=== PATIENT | female | born 1960 | race Caucasian/White ===

== ENCOUNTER 2016-09-17 05:33 | Inpatient (IN) | payer OTHER ==
[2016-09-04 08:35] LABS: HEMATOCRIT 42.8 % (37.0-47.0); HEMOGLOBIN 14.4 gm/dL (12.0-15.0); MCH 29.4 pg (26.0-34.0); MCHC 33.6 g/dL (28.0-37.0); MCV 87.5 fL (80.0-100.0); RBC 4.89 mil/uL (4.20-5.00); RDW 14.1 % (10.5-14.5); WBC 8.8 thou/uL (4.0-11.0)
[2016-09-04 08:37] LABS: URINE BILIRUBIN NEGATIVE (Negative); URINE BLOOD 1+ (Negative); URINE COLOR YELLOW; URINE GLUCOSE-RANDOM* NEGATIVE (Negative); URINE KETONES NEGATIVE (Negative); URINE LEUKOCYTES-REFLEX NEGATIVE (Negative); URINE PROTEIN (DIPSTICK) NEGATIVE (Negative); URINE UROBILINOGEN 0.2 E.U./dl (0.2-1.0)
[2016-09-04 08:42] LABS: ALBUMIN 3.8 g/dL (3.4-5.0); CALCIUM 8.8 mg/dL (8.5-10.1); CREATININE 0.7 mg/dL (0.6-1.0); POTASSIUM 4.1 mmol/L (3.5-5.1)
[2016-09-04 08:47] LABS: PROTIME 10.1 Seconds (9.3-11.4)
[2016-09-04 08:58] LABS: CASTS None Seen /LPF (None Seen); CRYSTALS None Seen /LPF (None Seen); SQUAMOUS 0-3 Few /LPF (0-3); URINE RBC 0-2 Rare /HPF (0-2); URINE WBC-REFLEX None Seen /HPF (0-5)
[2016-09-17] VITALS (9 sets, daily range): BP systolic 115–151; BP diastolic 70–81
[~2016-09-17] VITALS: Ht 154.9 cm; Wt 88.0 kg
--- NOTE | ~2016-09-17 | EKG ---
[address] [address] ELECTROCARDIOGRAM REPORT Name: MAHOGANY PECK Room #: [facility] IN [facility]#: [id number] Admission: Attend Phys: Kain Wakefield MD Discharge: Date of : 62 Report #: [id number] THIS REPORT FOR: //name// [facility] Test Date: 2016-09-04 Test Time: 08:28:41 Pat Name: MAHOGANY PECK Department: Room: Gender: F Machine Heel Seat Fitter: ayanna : 1960 Requested By: Kain Wakefield Order Number: [id number] MD: Gomez Buck Measurements Intervals [place] Rate: 74 P: 60 OR: 171 QRS: 27 QRSD: 118 T: 28 QT: 405 QTc: 450 Interpretive Statements Sinus rhythm No significant abnormality No previous ECG available for comparison Electronically Signed On 09-04-2016 9:03:41 CDT by Gomez Buck [email or web address] <ELECTRONICALLY SIGNED> By: Gomez Buck MD, [facility] 09/04/16 0903 0828 0828 Gomez Buck MD, FACC /EPI
--- NOTE | ~2016-09-17 | O ---
[facility] [place] [address] OPERATIVE REPORT Name: MAHOGANY PECK Room #: 540-P [facility] IN M.R.#: [id number] Admission: 09/17/16 Attend Phys: Kain Wakefield MD Discharge: Date of : 62 Report #: [id number] THIS REPORT FOR: //name// CC: Kain Barba DATE OF SERVICE: 09/17/2016 PREOPERATIVE DIAGNOSIS: Right knee valgus osteoarthritis. POSTOPERATIVE DIAGNOSIS: Right knee valgus osteoarthritis. PROCEDURE: Right total knee arthroplasty. SURGEON: Kain Wakefield MD. COSTING ANALYST: Emily Stanley PA-C. ANESTHESIA: LMA with an adductor canal block. IMPLANTS: Cantu and Nephew size 7 Legion posterior stabilized Oxinium femur, size 5 tibia, size 11 polyethylene, and size 35 patella. TOURNIQUET TIME: 80 minutes. ESTIMATED BLOOD LOSS: 50 mL. COMPLICATIONS: None. SPECIMENS: None. CONDITION UPON LEAVING THE OPERATING ROOM: Stable. INDICATIONS FOR PROCEDURE: This patient is a 55-year-old female with severe right knee valgus osteoarthritis. She had failed conservative treatment for this, and after discussion with her, she elected for right total knee arthroplasty. DESCRIPTION OF PROCEDURE: Risks, benefits, alternatives, and complications were discussed in detail with the patient including but not limited to risk of anesthesia, risk of damage to nerves, arteries, blood vessels, risk for infection, bleeding, risk for continued knee pain, and need for reoperation. An informed consent was obtained from the patient. The right knee was appropriately marked in the preoperative holding area. IV Ancef was given for preoperative antibiotics. An adductor canal block was placed by anesthesia. She was brought to the operating room and placed in the supine position on the [address] [address] OPERATIVE REPORT Name: MAHOGANY PECK Room #: 540-P [facility] IN ..#: [id number] Admission: 09/17/16 Attend Phys: Kain Wakefield MD Discharge: Date of : 62 Report #: [id number] operating room table. LMA anesthesia was induced without complication. Tourniquet was placed on the right thigh. Right lower extremity was prepped and draped in the normal sterile fashion. Timeout was performed, properly identifying the patient and procedure, as well as the instrumentation and implants. All in the operating room were in agreement. Right lower extremity was exsanguinated. Tourniquet was inflated. Tourniquet time was 80 minutes. Standard midline approach to the knee was made with #10 blade through the skin. Dissection was taken down sharply to the fascia, and deep flaps were developed medially and laterally. Fresh #10 blade was used to make a medial parapatellar arthrotomy, and the knee was inspected. There was extensive osteoarthritic change, primarily of the lateral compartment. Anterior horns of the meniscus were removed sharply. Deep retractors were placed. Patella was everted, and the knee was flexed. ACL and PCL were removed sharply. Drill was used to gain access to the canal of the femur, and the distal femoral cutting block was pinned in place. Distal femoral cut was made. There was minimal lateral femoral condylar resection with the initial cut, given her valgus arthritic knee. The femur was sized, found to be of size 7. The size 7 four-in-one cutting block was placed. The anterior, posterior, and chamfer cuts were made. After this, the knee was hyperflexed, and the tibial resection was placed off the medial plateau, as this was the least affected side. The remainder of the meniscus was removed with Bovie cautery. Flexion and extension gaps were checked and found to be tight in extension both medially and laterally. A 2 mm of additional distal femur were taken and chamfer cuts were redone. Flexion and extension gaps were then checked, and again it was still tight laterally, and so a limited lateral release was performed, using a pie-crusting technique, which balanced the knee well. After this, tibia was sized, found to be of size 5. Size 5 tibial trial was placed, size 7 femoral trial was placed, and the box cut was made. The post was placed and a size 11 polyethylene was placed. Knee was taken through range of motion, found to be stable, found to have good balance medially and laterally. A 9 mm was taken off the posterior surface of the patella and a size 35 patellar button trial was placed. Knee was taken through range of motion, found to be stable, found to have slight lateral tracking, and this will be evaluated after letting the tourniquet down and final implants were in place. After this, trial components were removed and bony ends were thoroughly irrigated with normal saline. A final size 5 tibia, size 7 Legion Oxinium posterior stabilized femur and a size 35 patella were cemented in place using standard cementation techniques. After the cement cured, the tourniquet was deflated and hemostasis was obtained with Bovie cautery. The patellar tracking was checked again. After a final size #11 polyethylene was placed and found to have slight lateral tracking in patella. The patella has very limited lateral release. This was performed with Bovie cautery, which adjusted the patellar tracking well. The knee was thoroughly irrigated with normal saline. Periarticular injection consisting of morphine, ropivacaine, epinephrine, and Toradol was placed around the knee joint. Fascia was closed with 0 Vicryl. Skin was closed with 2-0 Vicryl, 3-0 Monocryl, Dermabond, and an Aquacel [facility] [address] [place] [address] OPERATIVE REPORT Name: MAHOGANY PECK Room #: 540-P [facility] IN M.R.#: [id number] Admission: 09/17/16 Attend Phys: Kain Wakefield MD Discharge: Date of : 62 Report #: [id number] dressing was applied. The patient tolerated this procedure well and went to the recovery room under the care of anesthesia postoperatively. <ELECTRONICALLY SIGNED> By: Kain Wakefield MD 09/18/16 0731 1503 1735 Kain Wakefield MD /nt
[~2016-09-17 05:33] MED LIST: CARDIZEM CD120 MG PO; FLEXERIL PO; FLONASE 0.05%50 MCG NASAL; IBUPROFEN 200200 M1 PO; MULTIVITAMINS1 EAC7 PO; NICORETTE2 MG BC; NORCO 5-325 TA1 EACH PO; VERAPAMIL E.R240 M1 PO; VERAPAMIL HCL360 MG PO; VITAMIN D35000 UNIT PO
[2016-09-18 04:18] VITALS: BP 132/64
[2016-09-18 04:44] LABS: HEMATOCRIT 37.5 % (37.0-47.0); HEMOGLOBIN 12.4 gm/dL (12.0-15.0); MCH 28.9 pg (26.0-34.0); MCHC 33.2 g/dL (28.0-37.0); MCV 87.2 fL (80.0-100.0); RBC 4.3 mil/uL (4.20-5.00); RDW 14.1 % (10.5-14.5)
[2016-09-18 07:30] VITALS: BP 107/62
[2016-09-18] MEDS ORDERED: MS CONTIN15 MG PO (09:36)
[2016-09-18] MEDS ORDERED: CVS BUFFERED A325 MG PO (09:36)
[2016-09-18] MEDS ORDERED: PERCOCET PO (09:37)
[2016-09-18 11:13] VITALS: BP 107/62
== END 2016-09-18 11:53 | disposition home or self-care (01) | DRG 470 ==
LOC: 5S 05:33 → TBA 05:33 → 5S 07:41
PROVIDERS: Orthopaedic Surgery
PROC: 0SRC0J9 Replacement of Right Knee Joint with Synthetic Substitute, Cemented, Open Approach (ICD-10-PCS; principal; 2016-09-17)
DX: M17.11 Unilateral primary osteoarthritis, right knee (principal); M21.061 Valgus deformity, not elsewhere classified, right knee; I10 Essential (primary) hypertension; G43.909 Migraine, unspecified, not intractable, without status migrainosus; Z90.49 Acquired absence of other specified parts of digestive tract; Z87.891 Personal history of nicotine dependence; Z88.2 Allergy status to sulfonamides; Z88.6 Allergy status to analgesic agent
CPT/HCPCS: 10785; 50010; 50101; 50415; 50612; 50954; 51130; 51225; 51771; 52256; 53000; 53078; 53365; 54118; 56527; 56528; 57095; 62110; 62900; 70005

== ENCOUNTER 2016-10-29 17:00 | Emergency (ER) | payer OTHER ==
[~2016-10-29] VITALS: Ht 172.7 cm; Wt 79.4 kg
[~2016-10-29 17:00] MED LIST changes: +CVS BUFFERED A325 MG PO; +MS CONTIN15 MG PO; +PERCOCET PO
[2016-10-29 17:47] LABS: URINE BLOOD 1+ (Negative); URINE COLOR YELLOW; URINE GLUCOSE-RANDOM* NEGATIVE (Negative); URINE KETONES NEGATIVE (Negative); URINE LEUKOCYTES-REFLEX NEGATIVE (Negative); URINE PROTEIN (DIPSTICK) TRACE (Negative); URINE SPECIFIC GRAVITY >= 1.030 (1.003-1.035); URINE UROBILINOGEN 0.2 E.U./dl (0.2-1.0)
[2016-10-29 17:52] LABS: ABSOLUTE NEUTROPHILS 5.1 thou/uL (1.4-8.2); BASOPHILS 0.7 % (0.0-2.0); EOSINOPHILS 1.2 % (0.0-3.0); HEMATOCRIT 41.9 % (37.0-47.0); LYMPHOCYTES 30.4 % (24.0-44.0); MCH 28.9 pg (26.0-34.0); MCHC 33.5 g/dL (28.0-37.0); MCV 86.4 fL (80.0-100.0); MONOCYTES 7.1 % (1.0-8.0); PLATELET COUNT 294 thou/uL (150-400); POLYS 60.6 % (36.0-66.0); RBC 4.85 mil/uL (4.20-5.00); WBC 8.4 thou/uL (4.0-11.0)
[2016-10-29 17:52] LABS: URINE BILIRUBIN NEGATIVE (Negative)
[2016-10-29 17:53] LABS: MANUAL DIFF NO
[2016-10-29 17:54] LABS: CALCIUM 9.5 mg/dL (8.5-10.1); CREATININE 0.9 mg/dL (0.6-1.0); POTASSIUM 3.4 mmol/L (3.5-5.1)
[2016-10-29 17:59] LABS: CASTS None Seen /LPF (None Seen); CRYSTALS None Seen /LPF (None Seen); SQUAMOUS >10 Many /LPF (0-3); URINE WBC-REFLEX 0-5 Rare /HPF (0-5)
[2016-10-29 18:00] LABS: ALBUMIN 4.3 g/dL (3.4-5.0); TOTAL BILIRUBIN 0.3 mg/dL (<0.1-1.0)
[2016-10-29 18:48] LABS: URINE BILIRUBIN NEGATIVE (Negative); URINE BLOOD 2+ (Negative); URINE COLOR YELLOW; URINE GLUCOSE-RANDOM* NEGATIVE (Negative); URINE KETONES NEGATIVE (Negative); URINE LEUKOCYTES-REFLEX TRACE (Negative); URINE PROTEIN (DIPSTICK) NEGATIVE (Negative); URINE UROBILINOGEN 0.2 E.U./dl (0.2-1.0)
[2016-10-29 18:56] LABS: CASTS None Seen /LPF (None Seen); CRYSTALS None Seen /LPF (None Seen); SQUAMOUS 0-3 Few /LPF (0-3); URINE RBC 3-10 Few /HPF (0-2); URINE WBC-REFLEX 0-5 Rare /HPF (0-5)
== END 2016-10-29 20:16 | disposition home or self-care (01) ==
LOC: ER 17:00
PROVIDERS: Emergency Medicine
DX: R10.30 Lower abdominal pain, unspecified (principal); G43.909 Migraine, unspecified, not intractable, without status migrainosus; I10 Essential (primary) hypertension; Z90.49 Acquired absence of other specified parts of digestive tract; Z98.890 Other specified postprocedural states; Z88.5 Allergy status to narcotic agent; Z88.2 Allergy status to sulfonamides; Z88.6 Allergy status to analgesic agent; Z87.891 Personal history of nicotine dependence

== ENCOUNTER 2016-12-28 22:00 | Inpatient (IN) | payer OTHER ==
[~2016-12-28] VITALS: Ht 172.7 cm; Wt 78.6 kg
--- NOTE | ~2016-12-28 | HC ---
[facility] [place] [address] CONSULTATION Name: MAHOGANY PECK Room #: 422-P [facility] IN ..#: [id number] Admission: 12/29/16 Attend Phys: Edwin Fonseca DO Discharge: Date of : 62 Report #: [id number] THIS REPORT FOR: //name// CC: Edwin Barba DATE OF SERVICE: 12/29/2016 HISTORY OF PRESENT ILLNESS: The patient is a 56-year-old female with increasing low abdominal pain. She states it started approximately 2 weeks ago, but became progressively worse. The patient had knee surgery in August and was taking pain medication, became constipated. She denies any blood in her stools. She denies any fevers or chills. She does report nausea. She was seen by her primary care physician yesterday and reportedly had an elevated white count and was sent to the emergency room. A CT scan of the abdomen and pelvis was performed, which showed moderate severity in the mid sigmoid colon diverticulitis contained perforation of the sigmoid colon with a 2 cm extraluminal fluid and gas collection adjacent to the colonic wall, no intraperitoneal free air, no drainable abscess. The patient has had one previous episode of diverticulitis in the past and was treated with oral antibiotics and resolved. She has never had a colonoscopy. Her weight has been stable. She is now on IV Zosyn and Metronidazole. She is afebrile at this time. She denies any emesis. She denies any chest pain or shortness of breath. No rashes. She does complain of a headache. The patient also had recent urinary tract infection that was treated on the CT scan on admission. There is prominent circumferential bladder wall thickening, which was present previously and may represent underlying chronic cystitis. Small fat continuing left inguinal hernia was also noted. ALLERGIES: SULFA, CODEINE, MORPHINE AND PERCOCET. REVIEW OF SYSTEMS: As per HPI. FAMILY HISTORY: Negative for colon cancer or inflammatory bowel disease. SOCIAL HISTORY: She does smoke. She reports rare alcohol use. PHYSICAL EXAMINATION: VITAL SIGNS: Temperature is 97.5, pulse 70, blood pressure 134/78, and respiratory rate is 20. GENERAL: She is alert and oriented x 3, in no acute distress. HEENT: Sclerae nonicteric. Oropharynx clear. NECK: Supple, without lymphadenopathy. HEART: Regular rate and rhythm. CHEST: Clear to auscultation bilaterally. [facility] [address] [place] [address] CONSULTATION Name: MAHOGANY PECK Room #: 422-P [facility] IN [facility].#: [id number] Admission: 12/29/16 Attend Phys: Edwin Fonseca DO Discharge: Date of : 62 Report #: [id number] ABDOMEN: Soft. She is tender to palpation in the midline and left lower quadrant primarily, nondistended, positive bowel sounds. EXTREMITIES: No cyanosis or clubbing. Her right knee, total knee incision site is clean, dry, intact and well healed. Mild edema, but no redness. LABORATORY DATA: Sodium 141, potassium 3.4, chloride 103, bicarbonate 29, BUN 17, creatinine 0.9, AST 23, total bilirubin 0.3, alkaline phosphatase 137, ALT 36, total protein 7.4, and albumin 3.7. WBC is 7.1, hemoglobin 14.2, and platelet count is 289. UA negative other than 1+ blood and squamous epithelium 4 to 10, moderate bacteria 1 to 9, few. ASSESSMENT AND PLAN: 1. Diverticulitis. Agree with current antibiotic regimen of IV Zosyn and Flagyl. Agree with surgery consult, which is pending at this time. There does appear to be a microperforation with small fluid collection. I had a long discussion with the patient and her family. No abscess drainable noted on CT report. We will await Surgery consultation, may be able to treat with IV antibiotics without drain and/or surgery. 2. Nausea. Continue antinausea medication and supportive care. 3. The patient will need a colonoscopy in 4 to 6 weeks once her diverticulitis resolves if she has never had a previous colonoscopy in the past. Thank you for allowing me to participate in her care. <ELECTRONICALLY SIGNED> By: Casey Steward MD 12/30/16 1030 1130 0272 Casey Steward MD /nt
--- NOTE | ~2016-12-28 | HC ---
[facility] [place] [address] CONSULTATION Name: MAHOGANY PECK Room #: 422-P [facility] IN ..#: [id number] Admission: 12/29/16 Attend Phys: Edwin Fonseca DO Discharge: Date of : 62 Report #: [id number] THIS REPORT FOR: //name// CC: Edwin Barba DATE OF SERVICE: 12/29/2016 TYPE OF REPORT: General surgery consultation. REFERRING PROVIDER: Edwin Fonseca D.O. REASON FOR CONSULTATION: Abdominal pain. 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 The patient states she had knee surgery in August of 2016 where her knee is still swollen, warm to the touch and she has taken narcotic pain medications to combat the discomfort. The patient states she has had significant constipation issues with the narcotic pain medications and over the past several weeks has had worsening left lower quadrant abdominal pain secondary to that. Workup in the Emergency Room in the form of laboratories and a CT scan of the abdomen and pelvis were obtained. The patient's labs were largely within normal limits with a white blood cell count of 7.1. Her urinalysis appeared to be a contaminated specimen with quite a few squamous epithelial cells in it and her CT scan showed significant diverticulosis throughout the descending and sigmoid colon with one focal area of sigmoid diverticulitis with extraluminal contained perforation measuring 2 x 1 cm in dimension that is not drainable. The patient has been admitted and I have been asked to evaluate from a surgical standpoint. PAST MEDICAL HISTORY: Prior diverticulitis, hypertension, back pain and arthritis of the right knee status post surgery. HOME MEDICATIONS: Verapamil, multivitamin, Flonase, vitamin D3 and occasionally hydrocodone. ALLERGIES: Numerous and include CODEINE, SULFA, MORPHINE and OXYCODONE. FAMILY HISTORY: Reviewed and noncontributory. SOCIAL HISTORY: The patient smokes half a pack of cigarettes daily and has done so for several years. States she does not utilize alcohol or illicit drugs. REVIEW OF SYSTEMS: [facility] [address] [place] [address] CONSULTATION Name: MAHOGANY PECK Room #: 422-P [facility] IN [facility].#: [id number] Admission: 12/29/16 Attend Phys: Edwin Fonseca DO Discharge: Date of : 62 Report #: [id number] GENERAL: The patient denies nocturnal fevers or chills. HEENT: No change in vision or change in hearing. NECK: No swelling or difficulty swallowing. HEART: No chest pain or palpitations. LUNGS: No cough or shortness of breath. ABDOMEN: Abdominal pain and nausea. GENITOURINARY: No dysuria or hematuria. ENDOCRINE: No polyuria or polydipsia. HEMATOLOGIC: No history of bleeding or easy bruising. EXTREMITIES: No history weakness or limited range of motion. NEUROLOGICAL: No history of syncope or near-syncopal episodes. SKIN AND INTEGUMENT: No history of abnormal lesions or moles. PSYCHIATRIC: No history of anxiety or depression. PHYSICAL EXAMINATION: VITAL SIGNS: Temperature 97.5, pulse 70, respirations 20 and blood pressure 134/78. She stands 5 feet 8 inches tall and weighs 173 pounds. GENERAL: Alert and oriented, in no acute distress. HEENT: Normocephalic and atraumatic. Pupils equal, round and reactive to light. NECK: Supple, without lymphadenopathy. Trachea midline. HEART: Regular rate and rhythm. LUNGS: Clear to auscultation bilaterally. ABDOMEN: Soft and nondistended. She is tender to palpation in left lower quadrant with deep palpation as well as the suprapubic region but does not have any guarding, rebound or peritoneal signs or symptoms. GENITOURINARY: Normal external female genitalia. EXTREMITIES: No clubbing, cyanosis or edema. NEUROLOGICAL: Cranial nerves 2 through 12 are grossly intact. PSYCHIATRIC: Normal mood and affect. SKIN AND INTEGUMENT: No abnormal lesions or moles. LABORATORY AND X-RAY DATA: CBC shows white blood cell count of 7.1; hemoglobin 14.2 and platelets 289,000. Her creatinine is 0.9. Liver function enzymes are normal. CT scan of the abdomen and pelvis as per HPI shows significant diverticulosis throughout the descending and sigmoid colon region with a focal area of wall thickening in the sigmoid colon with a contained perforation along the anterior and inferior colonic wall measuring 2 x 2 cm in dimension. She also has thickening to the bladder wall consistent with underlying chronic cystitis. She also a small fat containing left inguinal hernia. ASSESSMENT AND PLAN: A 56-year-old female with a second bout of sigmoid diverticulitis at this time with a contained perforation that is undrainable by imaging. At this time, recommend continuation of n.p.o. status, aggressive IV fluid rehydration and IV antibiotics. Hopefully, this will resolve with conservative measures as it should and then, she would necessitate [address] [address] CONSULTATION Name: MAHOGANY PECK Room #: 422-P [facility] IN M.R.#: [id number] Admission: 12/29/16 Attend Phys: Edwin Fonseca DO Discharge: Date of : 62 Report #: [id number] colonoscopy and elective sigmoid colectomy at some point in the future. I sincerely appreciate this consult. I will follow closely and leave any further recommendations in the patient's chart as appropriate. <ELECTRONICALLY SIGNED> By: William Delgado MD, FACS 12/30/16 1130 1405 0104 William Delgado MD, FACS /nt
[2016-12-28 22:04] VITALS: BP 165/84
[2016-12-29 01:59] LABS: URINE BILIRUBIN NEGATIVE (Negative); URINE BLOOD 1+ (Negative); URINE COLOR YELLOW; URINE GLUCOSE-RANDOM* NEGATIVE (Negative); URINE KETONES NEGATIVE (Negative); URINE LEUKOCYTES-REFLEX NEGATIVE (Negative); URINE PROTEIN (DIPSTICK) NEGATIVE (Negative); URINE SPECIFIC GRAVITY 1.025 (1.003-1.035); URINE UROBILINOGEN 0.2 E.U./dl (0.2-1.0)
[2016-12-29 02:08] LABS: CASTS None Seen /LPF (None Seen); CRYSTALS None Seen /LPF (None Seen); SQUAMOUS 4-10 Moderate /LPF (0-3); URINE WBC-REFLEX 0-5 Rare /HPF (0-5)
[2016-12-29 02:09] LABS: URINE RBC 0-2 Rare /HPF (0-2)
[2016-12-29 02:21] LABS: HEMATOCRIT 42.4 % (37.0-47.0); HEMOGLOBIN 14.2 gm/dL (12.0-15.0); MCH 28.1 pg (26.0-34.0); MCHC 33.4 g/dL (28.0-37.0); MCV 84.2 fL (80.0-100.0); RBC 5.04 mil/uL (4.20-5.00); RDW 14.1 % (10.5-14.5); WBC 7.1 thou/uL (4.0-11.0)
[2016-12-29 02:32] LABS: CALCIUM 9.1 mg/dL (8.5-10.1); CREATININE 0.9 mg/dL (0.6-1.0); POTASSIUM 3.4 mmol/L (3.5-5.1)
[2016-12-29 02:38] LABS: ALBUMIN 3.7 g/dL (3.4-5.0); TOTAL BILIRUBIN 0.3 mg/dL (<0.1-1.0); TOTAL PROTEIN 7.4 g/dL (6.4-8.2)
[2016-12-29 06:19] VITALS: BP 126/57; BP 156/97
[2016-12-29 06:41] VITALS: BP 139/72
[2016-12-29 07:35] VITALS: BP 134/78
[2016-12-29 15:43] VITALS: BP 132/71
[2016-12-29 20:00] VITALS: BP 134/73
[2016-12-30 04:11] LABS: HEMOGLOBIN 13.3 gm/dL (12.0-15.0); MCHC 33.3 g/dL (28.0-37.0); RBC 4.76 mil/uL (4.20-5.00); RDW 14.2 % (10.5-14.5)
[2016-12-30 04:26] LABS: CALCIUM 8.9 mg/dL (8.5-10.1); CREATININE 0.7 mg/dL (0.6-1.0); POTASSIUM 3.6 mmol/L (3.5-5.1)
[2016-12-30 04:30] VITALS: BP 136/82
[2016-12-30 08:05] VITALS: BP 128/64
[2016-12-30 15:53] VITALS: BP 132/69
[2016-12-30 19:39] VITALS: BP 124/65
[2016-12-31 04:05] VITALS: BP 136/64
[2016-12-31 05:18] LABS: ABSOLUTE NEUTROPHILS 4.3 thou/uL (1.4-8.2); BASOPHILS 0.7 % (0.0-2.0); EOSINOPHILS 1.5 % (0.0-3.0); HEMATOCRIT 38.7 % (37.0-47.0); LYMPHOCYTES 28.9 % (24.0-44.0); MCH 28.3 pg (26.0-34.0); MCHC 33.7 g/dL (28.0-37.0); MCV 84.1 fL (80.0-100.0); PLATELET COUNT 251 thou/uL (150-400); POLYS 59.9 % (36.0-66.0); RBC 4.61 mil/uL (4.20-5.00); RDW 14.1 % (10.5-14.5); WBC 7.2 thou/uL (4.0-11.0)
[2016-12-31 05:29] LABS: MANUAL DIFF NO
[2016-12-31 05:37] LABS: CALCIUM 8.8 mg/dL (8.5-10.1); CREATININE 0.7 mg/dL (0.6-1.0); POTASSIUM 3.3 mmol/L (3.5-5.1)
[2016-12-31 07:30] VITALS: BP 133/75
[2016-12-31 15:03] VITALS: BP 133/75
== END 2016-12-31 15:26 | disposition home or self-care (01) | DRG 392 ==
LOC: ER 22:00 → 4E 12-29 05:00 → EROBS 12-29 05:00 → 4E 12-29 06:19 → ENTRNSPT 12-31 15:14 → EDTRNSPTSTS 12-31 15:16 → 4E 12-31 15:26
PROVIDERS: Emergency Medicine; Family Medicine; Nurse Practitioner Family
DX: K57.20 Diverticulitis of large intestine with perforation and abscess without bleeding (principal); G43.909 Migraine, unspecified, not intractable, without status migrainosus; I10 Essential (primary) hypertension; F17.210 Nicotine dependence, cigarettes, uncomplicated; Z96.651 Presence of right artificial knee joint; Z90.49 Acquired absence of other specified parts of digestive tract; Z88.6 Allergy status to analgesic agent; Z88.5 Allergy status to narcotic agent; Z88.2 Allergy status to sulfonamides; Z88.8 Allergy status to other drugs, medicaments and biological substances; Z87.440 Personal history of urinary (tract) infections
CPT/HCPCS: 10084

== ENCOUNTER 2018-12-25 09:08 | Emergency (ER) | payer BC, OTHER ==
[~2018-12-25] VITALS: Ht 167.6 cm; Wt 74.8 kg
[2018-12-25 09:57] LABS: URINE BILIRUBIN NEGATIVE (Negative); URINE BLOOD NEGATIVE (Negative); URINE CLARITY CLEAR; URINE COLOR YELLOW; URINE GLUCOSE-RANDOM* NEGATIVE (Negative); URINE KETONES NEGATIVE (Negative); URINE LEUKOCYTES-REFLEX NEGATIVE (Negative); URINE NITRITE-REFLEX NEGATIVE (Negative); URINE PROTEIN (DIPSTICK) NEGATIVE (Negative); URINE SPECIFIC GRAVITY <= 1.005 (1.005-1.035); URINE UROBILINOGEN 0.2 E.U./dl (0.2-1.0)
[2018-12-25 10:14] LABS: ABSOLUTE NEUTROPHILS 3.9 thou/uL (1.4-8.2); BASOPHILS 0.8 % (0.0-2.0); EOSINOPHILS 1.3 % (0.0-3.0); HEMOGLOBIN 14.8 gm/dL (12.0-15.0); LYMPHOCYTES 24.1 % (24.0-44.0); MCH 28.9 pg (26.0-34.0); MCHC 32.8 g/dL (28.0-37.0); MCV 88.2 fL (80.0-100.0); MONOCYTES 7.6 % (1.0-8.0); PLATELET COUNT 253 thou/uL (150-400); POLYS 66.2 % (36.0-66.0); RDW 13.3 % (10.5-14.5); WBC 5.9 thou/uL (4.0-11.0)
[2018-12-25 10:23] LABS: CALCIUM 9.4 mg/dL (8.5-10.1); CREATININE 0.7 mg/dL (0.6-1.0)
[2018-12-25 10:29] LABS: ALBUMIN 3.7 g/dL (3.4-5.0); TOTAL BILIRUBIN 0.3 mg/dL (<0.1-1.0); TOTAL PROTEIN 7.3 g/dL (6.4-8.2)
[2018-12-25] MEDS ORDERED: NAPROSYN500 MG PO (10:40)
[2018-12-25] MEDS ORDERED: ROBAXIN 750 MG750 MG PO (10:40)
[2018-12-25 11:56] VITALS: BP 125/82
== END 2018-12-25 11:56 | disposition home or self-care (01) ==
LOC: ER 09:08
PROVIDERS: Emergency Medicine
DX: M54.5 Low back pain (principal); G43.909 Migraine, unspecified, not intractable, without status migrainosus; I10 Essential (primary) hypertension; Z87.891 Personal history of nicotine dependence; Z88.5 Allergy status to narcotic agent; Z88.2 Allergy status to sulfonamides; Z88.6 Allergy status to analgesic agent; Z88.8 Allergy status to other drugs, medicaments and biological substances; Z90.49 Acquired absence of other specified parts of digestive tract; Z98.890 Other specified postprocedural states; Z96.651 Presence of right artificial knee joint

== ENCOUNTER 2019-03-11 10:50 | Observation (INO) | payer BC, OTHER ==
[2019-02-25 10:53] LABS: URINE BILIRUBIN NEGATIVE (Negative); URINE BLOOD NEGATIVE (Negative); URINE CLARITY CLEAR; URINE COLOR YELLOW; URINE GLUCOSE-RANDOM* NEGATIVE (Negative); URINE KETONES NEGATIVE (Negative); URINE NITRITE-REFLEX NEGATIVE (Negative); URINE PROTEIN (DIPSTICK) NEGATIVE (Negative); URINE UROBILINOGEN 0.2 E.U./dl (0.2-1.0)
[2019-02-25 10:56] LABS: URINE LEUKOCYTES-REFLEX 1+ (Negative)
[2019-02-25 10:56] LABS: HEMATOCRIT 42.8 % (37.0-47.0); MCH 28.9 pg (26.0-34.0); MCHC 32.8 g/dL (28.0-37.0); MCV 88.1 fL (80.0-100.0); RBC 4.85 mil/uL (4.20-5.00); RDW 13.5 % (10.5-14.5)
[2019-02-25 11:02] LABS: PROTIME 10.6 Seconds (9.3-11.4)
[2019-02-25 11:03] LABS: CALCIUM 9.6 mg/dL (8.5-10.1); CREATININE 0.8 mg/dL (0.6-1.0); POTASSIUM 4.3 mmol/L (3.5-5.1)
[2019-02-25 11:07] LABS: SQUAMOUS 0-3 Few /LPF (0-3); URINE RBC 0-2 Rare /HPF (0-2); URINE WBC-REFLEX 0-5 Rare /HPF (0-5)
[2019-02-25 11:09] LABS: BACTERIA-REFLEX 1-9 Few /HPF (None Seen); CASTS None Seen /LPF (None Seen); CRYSTALS None Seen /LPF (None Seen)
--- NOTE | 2019-02-27 12:46 | EKG ---
[address] [address] ELECTROCARDIOGRAM REPORT Name: MAHOGANY PECK Room #: [facility].#: [id number] Admission: Attend Phys: Kain Wakefield MD Discharge: Date of : 62 Report #: [id number] THIS REPORT FOR: //name// [facility] Test Date: 2019-02-25 Test Time: 10:47:25 Pat Name: MAHOGANY PECK Department: Room: Gender: F Command Center Analyst: Susana KING : 1960 Requested By: Kain Wakefield Order Number: [id number] MD: Gomez Buck Measurements Intervals [place] Rate: 60 P: 59 CO: 166 QRS: 25 QRSD: 133 T: 42 QT: 425 QTc: 425 Interpretive Statements Sinus rhythm Normal tracing Compared to ECG 09/04/2016 08:28:41 No significant change was found Electronically Signed On 02-27-2019 12:46:21 [employer] ASSEMBLER by Gomez Buck [email or web address] <ELECTRONICALLY SIGNED> By: Gomez Buck MD, [facility] 02/27/19 1246 1047 1047 Gomez Buck MD, FACC /EPI
[~2019-03-11] VITALS: Ht 172.7 cm; Wt 81.7 kg
[2019-03-11] VITALS (7 sets, daily range): BP systolic 118–128; BP diastolic 66–74
[2019-03-11 06:50] LABS: URINE BILIRUBIN NEGATIVE (Negative); URINE BLOOD 1+ (Negative); URINE CLARITY CLEAR; URINE COLOR YELLOW; URINE GLUCOSE-RANDOM* NEGATIVE (Negative); URINE KETONES NEGATIVE (Negative); URINE LEUKOCYTES 1+ (Negative); URINE NITRITE NEGATIVE (Negative); URINE PROTEIN (DIPSTICK) NEGATIVE (Negative); URINE SPECIFIC GRAVITY >= 1.030 (1.005-1.035); URINE UROBILINOGEN 0.2 E.U./dl (0.2-1.0)
[2019-03-11 06:54] LABS: PROTIME 10.1 Seconds (9.3-11.4)
[2019-03-11 08:48] LABS: SQUAMOUS >10 Many /LPF (0-3)
[2019-03-11 08:49] LABS: CASTS None Seen /LPF (None Seen); CRYSTALS None Seen /LPF (None Seen); URINE RBC 0-2 Rare /HPF (0-2); URINE WBC 6-15 Few /HPF (0-5)
[~2019-03-11 10:50] MED LIST changes: +CALAN SR240 MG PO; +NAPROSYN500 MG PO; +ROBAXIN 750 MG750 MG PO; +VERAPAMIL ER240 M1 PO
[2019-03-11] MEDS ORDERED: DILAUDID 2 MG TA2 MG PO (13:57)
[2019-03-11] MEDS ORDERED: ASPIR 8181 MG PO (13:57)
[2019-03-11] MEDS ORDERED: KEFLEX500 M1 PO (13:58)
--- NOTE | 2019-03-11 15:29 | NUR ---
PT. CARE ASSUMED AT 1029. A&Ox4. PT POST OP AFTER A R. KNEE POLYETHELENE EXCHANGE. VITALS STABLE. ON ROOM AIR. PAIN TOLERATED WELL. AT BEDSIDE. DISCHARGED TO HOME WITH SCRIPTS. PT EVALUATED AND GOOD TO GO HOME.
--- NOTE | 2019-03-18 14:33 | O ---
[facility] [place] [address] OPERATIVE REPORT Name: MAHOGANY PECK [id number] Admission: 03/11/19 Attend Phys: Kain Wakefield MD Discharge: 03/11/19 Date of : 62 Report #: [id number] THIS REPORT FOR: //name// CC: Abdulaziz Wakefield DATE OF SERVICE: 03/11/2019 PREOPERATIVE DIAGNOSES: Right total knee arthroplasty, varus or valgus instability. POSTOPERATIVE DIAGNOSES: Right total knee arthroplasty, varus or valgus instability. PROCEDURE: Right total knee arthroplasty, polyethylene exchange. SURGEON: Kain Wakefield MD. REGISTRY NP: Emily Stanley PA-C. INDICATIONS FOR REGISTRY NP: Throughout the case, extensive retraction and manipulation of the knee was required. This was afforded to me by my bilingual administrative assistant. ANESTHESIA: LMA with an adductor canal block. IMPLANTS: Cantu and Nephew size 5, 6, 13 constrained polyethylene. TOURNIQUET TIME: 21 minutes. ESTIMATED BLOOD LOSS: 25 mL. COMPLICATIONS: None. SPECIMENS: None. CONDITION UPON LEAVING THE OPERATING ROOM: Stable. INDICATIONS FOR PROCEDURE: The patient is a 58-year-old female who is about 2 years out from a right total knee arthroplasty. She has had continued varus or valgus instability of the knee with continued inflammation. Workup for infection was negative. After discussion with her, she elected for polyethylene exchange for a thicker poly and a constrained poly. DESCRIPTION OF PROCEDURE: Risks, benefits, alternatives, complications were discussed in detail with the patient including but not limited to risk of anesthesia, risk of damage to nerves, arteries, blood vessels, risk for [facility] [address] [place] [address] OPERATIVE REPORT Name: MAHOGANY PECK Room #: 436-P [facility].#: [id number] Admission: 03/11/19 Attend Phys: Kain Wakefield MD Discharge: 03/11/19 Date of : 62 Report #: [id number] infection, bleeding, risk for continued knee pain, need for reoperation. Informed consent was obtained from the patient. Right knee was appropriately marked in the preoperative holding area. IV Ancef was given for preoperative antibiotics. Adductor canal block was placed by Anesthesia. She was brought to the operating room and placed in supine position on operating room table. LMA anesthesia was induced without complications. Tourniquet was placed on the right thigh. Right lower extremity was prepped and draped in normal sterile fashion. Timeout was performed, properly identifying the patient and procedure as well as the instrumentation. All in the operating room were in agreement. Right lower extremity was exsanguinated, tourniquet was inflated. Tourniquet time was 21 minutes. The previous scar was used and this was opened with a 10 blade through the skin. Dissection was taken down sharply to the fascia and deep flaps were developed medially and laterally. Fresh 10 blade was used to make a medial parapatellar arthrotomy. There was normal-appearing joint fluid. Medial and lateral dissection was performed sharply. The previous polyethylene was removed easily and this was trialed with an 11 constrained and then a 13 constrained polyethylene and the 13 constrained polyethylene gave the best stability varus or valgus. The trial poly was removed and final size 13 constrained polyethylene was placed. Knee was taken through range of motion, found to have good stability and good balance in flexion and extension both medially and laterally. The tourniquet was deflated. Hemostasis was obtained with Bovie cautery. Periarticular injection consisting of ropivacaine, epinephrine and Toradol was placed around the knee joint capsule. The fascia was closed with 0 Vicryl, skin was closed with 2-0 Vicryl, skin staple and a ELISEO dressing was applied. The patient tolerated this procedure well and went to recovery room under care of anesthesia postoperatively. <ELECTRONICALLY SIGNED> By: Kain Wakefield MD 03/18/19 1433 0927 0939 Kain Wakefield MD /nt
== END 2019-03-11 15:31 | disposition home or self-care (01) ==
LOC: OR 10:50 → 4S 10:51 → OR 13:17 → ENTRNSPT 15:22 → EDTRNSPTSTS 15:25 → 4S 15:31
PROVIDERS: ADMIT Orthopaedic Surgery
DX: M21.161 Varus deformity, not elsewhere classified, right knee (principal); M17.11 Unilateral primary osteoarthritis, right knee; G43.909 Migraine, unspecified, not intractable, without status migrainosus; K58.9 Irritable bowel syndrome, unspecified; M24.661 Ankylosis, right knee; M21.061 Valgus deformity, not elsewhere classified, right knee; I10 Essential (primary) hypertension; Z88.6 Allergy status to analgesic agent; Z88.2 Allergy status to sulfonamides; Z88.8 Allergy status to other drugs, medicaments and biological substances; Z90.49 Acquired absence of other specified parts of digestive tract; Z87.891 Personal history of nicotine dependence
CPT/HCPCS: 10102; 50010; 50101; 50415; 50954; 51412; 53078; 55389; 56528; 57095; 57103; 57110; 57180; 62110; 62900; 64043; 65060; 70005

== ENCOUNTER → 2019-05-20 | Outpatient (CLI) | payer BC, OTHER ==
[~2019-05-20] MED LIST changes: +ASPIR 8181 MG PO; +DILAUDID 2 MG TA2 MG PO; +KEFLEX500 M1 PO
== END ==
LOC: NUC 05-19 18:58
DX: T84.032A Mechanical loosening of internal right knee prosthetic joint, initial encounter (principal); M23.51 Chronic instability of knee, right knee; Z96.651 Presence of right artificial knee joint; Y92.89 Other specified places as the place of occurrence of the external cause